=== PATIENT | male | born 1940 | race Caucasian/White ===

== ENCOUNTER → 2016-09-18 | Outpatient (CLI) | payer MEDICARE ==
[2016-09-21 14:46] LABS: ASPARTATE AMINO TRANSFERASE 29 U/L (15-37); BLOOD UREA NITROGEN 22 mg/dL (7-18)
== END | disposition home or self-care (01) ==
LOC: CFH 10:10
PROVIDERS: ATTEND Internal Medicine Cardiovascular Disease
DX: E78.2 Mixed hyperlipidemia (principal); I10 Essential (primary) hypertension
CPT/HCPCS: 36415; 80053; 80061

== ENCOUNTER → 2017-03-05 | Outpatient (CLI) | payer MEDICARE ==
[2017-03-09 14:16] LABS: LYME DISEASE IGG/IGM TOTAL AB <0.91 ISR (0.00-0.90); LYME DISEASE IGM <0.80 index (0.00-0.79)
== END | disposition home or self-care (01) ==
LOC: LAB 18:01
PROVIDERS: ATTEND Emergency Medicine
DX: M79.1 Myalgia (principal)
CPT/HCPCS: 36415; 85651; 86140; 86618

== ENCOUNTER 2017-04-02 13:33 | Inpatient (IN) | payer MEDICARE ==
[~2017-04-02] VITALS: Ht 180.3 cm; Wt 116.1 kg
[2017-04-02] MEDS ORDERED: SODIUM CHLORIDE FLUSH 10ML SYR IVF ONE (14:00)
[2017-04-02] MEDS ORDERED: PLEASE ENTER ALLERGIES MC SCH ×2 (14:00)
[2017-04-02 14:18] LABS: BLOOD UREA NITROGEN 19 mg/dL (7-18)
[2017-04-02 14:21] LABS: HEMATOCRIT 44.2 % (39.2-51.8); HEMOGLOBIN 14.8 g/dL (13.7-18.0); WHITE BLOOD COUNT 10.3 x10^3/uL (3.4-10)
[2017-04-02 14:23] LABS: ASPARTATE AMINO TRANSFERASE 24 U/L (15-37)
[2017-04-02] MEDS ORDERED: CHOL2000 PO (14:26)
[2017-04-02] MEDS ORDERED: ATOR80TA PO (14:26)
[2017-04-02] MEDS ORDERED: TAMS-11 PO (14:26)
[2017-04-02] MEDS ORDERED: ASPI-496 PO (14:26)
[2017-04-02] MEDS ORDERED: MULT-500 PO (14:26)
[2017-04-02] MEDS ORDERED: METO25TA2 PO (14:26)
[2017-04-02 14:30] LABS: IS PT STATUS REG ER OR PRE ER? YES
[2017-04-02] MEDS ORDERED: TAMSULOSIN 0.4 MG CAP.ER.24H ONE (14:30)
[2017-04-02] MEDS ORDERED: TAMSULOSIN 0.4 MG CAP.ER.24H PO ONE (15:00)
[2017-04-02] MEDS ORDERED: OMNIPAQUE 350 MG/ML, 100ML BOTTLE ONE (15:20)
[2017-04-02] MEDS ORDERED: HEPARIN 5,000 UNITS/ML, 1ML IV ONE (16:00)
[2017-04-02] MEDS ORDERED: HEPARIN 25,000 UNITS/500ML PMX 500 ML ONE (16:15)
[2017-04-02] MEDS ORDERED: HEPARIN 5,000 UNITS/ML, 1ML ONE (16:15)
[2017-04-02] MEDS: HEPARIN 25,000 UNITS/500ML PMX 500 ML IV PRN (16:21)
[2017-04-02] MEDS ORDERED: ONDANSETRON 2MG/ML, 2ML IVPush PRN (17:00)
[2017-04-02] MEDS ORDERED: POLYETHYLENE GLYCOL 17 GM PACKET PO PRN (17:00)
[2017-04-02] MEDS ORDERED: ENALAPRILAT 1.25 MG/ML, 2ML IVPush PRN (17:00)
[2017-04-02] MEDS ORDERED: HYDROcodone/APAP 5/325 TABLET PO PRN (17:00)
[2017-04-02] MEDS ORDERED: morphine SULFATE 10 MG/ML, 1ML IVPush PRN (17:00)
[2017-04-02] MEDS ORDERED: BISACODYL 10 MG SUPP PR PRN (17:00)
[2017-04-02] MEDS ORDERED: DOCUSATE 100 MG CAPSULE PO PRN (17:00)
[2017-04-02 18:05] VITALS: BP 128/77
[2017-04-02 20:11] VITALS: BP 125/75
[2017-04-02] MEDS: ATORVASTATIN 80 MG TABLET PO SCH (20:50)
[2017-04-02] MEDS: SODIUM CHLORIDE FLUSH 10ML SYR IVF SCH (20:50)
[2017-04-02] MEDS: HEPARIN 5,000 UNITS/ML, 1ML IV PRN (23:03)
[2017-04-02] MEDS: ZOLPIDEM 10MG TABLET PO PRN (23:23)
[2017-04-03 05:00] VITALS: BP 121/75
[2017-04-03 05:24] LABS: HEMOGLOBIN 13.5 g/dL (13.7-18.0); WHITE BLOOD COUNT 9.2 x10^3/uL (3.4-10)
[2017-04-03 05:31] LABS: BLOOD UREA NITROGEN 25 mg/dL (7-18)
[2017-04-03] MEDS: HEPARIN 5,000 UNITS/ML, 1ML IV PRN (06:01)
[2017-04-03] MEDS: ASPIRIN 81 MG TABLET EC PO SCH (09:14)
[2017-04-03] MEDS: TAMSULOSIN 0.4 MG CAP.ER.24H PO SCH (09:14)
[2017-04-03] MEDS: CHOLECALCIFEROL 1,000 UNIT TABLET PO SCH (09:14)
[2017-04-03] MEDS: MULTIVITAMINS/MINERALS TABLET PO SCH (09:14)
[2017-04-03] MEDS: METOPROLOL SUCCINATE 25 MG TAB.ER.24H PO SCH (09:14)
[2017-04-03] MEDS: SODIUM CHLORIDE FLUSH 10ML SYR IVF SCH ×2 (09:15→20:44)
[2017-04-03 10:28] LABS: CARCINOEMBRYONIC ANTIGEN 2.13 ng/mL (0.0-3.00); PROSTATE SPECIFIC ANTIGEN 0.48 ng/mL (0.00-4.00)
[2017-04-03 13:00] VITALS: BP 126/76
[2017-04-03] MEDS: HEPARIN 25,000 UNITS/500ML PMX 500 ML IV PRN (14:45)
[2017-04-03] MEDS: APIXABAN 5 MG TABLET PO SCH ×2 (15:30→16:04)
[2017-04-03] MEDS ORDERED: HYDR-3240 PO (16:02)
[2017-04-03] MEDS ORDERED: APIX5TAB PO (16:02)
[2017-04-03] MEDS ORDERED: HEPARIN 25,000 UNITS/500ML PMX 500 ML IV PRN (16:30)
[2017-04-03] MEDS ORDERED: HEPARIN 5,000 UNITS/ML, 1ML IV PRN (16:30)
[2017-04-03 19:37] VITALS: BP 130/75
[2017-04-03] MEDS: ZOLPIDEM 10MG TABLET PO PRN (20:44)
[2017-04-03] MEDS: ATORVASTATIN 80 MG TABLET PO SCH (20:44)
[2017-04-04 01:11] VITALS: BP 144/78
[2017-04-04] MEDS: ACETAMINOPHEN 325 MG TABLET PO PRN ×2 (01:25→06:59)
[2017-04-04 05:50] LABS: HEMATOCRIT 40.8 % (39.2-51.8); HEMOGLOBIN 13.6 g/dL (13.7-18.0)
[2017-04-04 08:00] VITALS: BP 127/80
[2017-04-04] MEDS: SODIUM CHLORIDE FLUSH 10ML SYR IVF SCH (08:13)
[2017-04-04] MEDS: TAMSULOSIN 0.4 MG CAP.ER.24H PO SCH (08:14)
[2017-04-04] MEDS: MULTIVITAMINS/MINERALS TABLET PO SCH (08:14)
[2017-04-04] MEDS: CHOLECALCIFEROL 1,000 UNIT TABLET PO SCH (08:15)
[2017-04-04] MEDS: ASPIRIN 81 MG TABLET EC PO SCH (08:15)
[2017-04-04] MEDS: METOPROLOL SUCCINATE 25 MG TAB.ER.24H PO SCH (08:15)
[2017-04-04] MEDS ORDERED: APIXABAN 5 MG TABLET PO SCH (09:30)
[2017-04-04 11:42] LABS: OCCBLD OBC PASS
[2017-04-04] MEDS ORDERED: FLU VACC QS2017-18 (36MOS+) UP/PF 0.5 ML IM-VACC ONE (13:30)
[2017-04-04] MEDS ORDERED: TRAM50TA2 PO (13:57)
[2017-04-04 14:00] VITALS: BP 115/69
== END 2017-04-04 17:38 | disposition home or self-care (01) | DRG 299 ==
LOC: ED 16:29 → EDIP 16:35 → 5SO 17:45
PROVIDERS: ADMIT Internal Medicine; ATTEND Internal Medicine
DX: I82.401 Acute embolism and thrombosis of unspecified deep veins of right lower extremity (principal); I26.99 Other pulmonary embolism without acute cor pulmonale; E44.1 Mild protein-calorie malnutrition; I27.20 Pulmonary hypertension, unspecified; I45.10 Unspecified right bundle-branch block; D72.829 Elevated white blood cell count, unspecified; E78.5 Hyperlipidemia, unspecified; I10 Essential (primary) hypertension; I25.10 Atherosclerotic heart disease of native coronary artery without angina pectoris; M10.9 Gout, unspecified; N40.0 Benign prostatic hyperplasia without lower urinary tract symptoms; Z68.35 Body mass index [BMI] 35.0-35.9, adult; Z80.7 Family history of other malignant neoplasms of lymphoid, hematopoietic and related tissues; Z82.49 Family history of ischemic heart disease and other diseases of the circulatory system; Z86.711 Personal history of pulmonary embolism; Z86.718 Personal history of other venous thrombosis and embolism; Z86.72 Personal history of thrombophlebitis; Z87.891 Personal history of nicotine dependence; Z95.1 Presence of aortocoronary bypass graft; Z23 Encounter for immunization
CPT/HCPCS: 36415; 71275; 80048; 80053; 81241; 82272; 82306; 82378; 82607; 83880; 84153; 84484; 85025; 85303; 85306; 85520; 85598; 85610; 85613; 85670; 85730; 85732; 86146; 86147; 90686; 93005; 93306; 96374; J1644; Q9967

== ENCOUNTER 2017-08-15 12:01 | Emergency (ER) | payer MEDICARE ==
[~2017-08-15] VITALS: Ht 180.3 cm; Wt 121.0 kg
[~2017-08-15 12:01] MED LIST: APIX5TAB PO; ASPI-496 PO; ATOR80TA PO; CHOL2000 PO; HYDR-3240 PO; METO25TA2 PO; MULT-500 PO; TAMS-11 PO; TRAM50TA2 PO
[2017-08-15 12:04] VITALS: BP 139/77
[2017-08-15] MEDS ORDERED: APIX5TAB PO (12:09)
[2017-08-15 12:44] LABS: BASOPHILS # (AUTO) 0.01 x10^3/uL (0-0.1); BASOPHILS % (AUTO) 0 % (0-1); EOSINOPHILS % (AUTO) 1 % (1-7); LYMPHOCYTES # (AUTO) 2.86 x10^3/uL (1-3.4); LYMPHOCYTES % (AUTO) 31 % (22-44); MD NO; MEAN CORPUSCULAR HEMOGLOBIN 31.2 pg (27.5-34.5); MEAN CORPUSCULAR HGB CONC 33.5 g/dL (33.2-36.2); MEAN CORPUSCULAR VOLUME 93.1 fL (81-97); MEAN PLATELET VOLUME 8.6 fL (7.4-10.4); MONOCYTES # (AUTO) 0.54 x10^3/uL (0.2-0.8); MONOCYTES % (AUTO) 6 % (2-9); NEUTROPHILS # (AUTO) 5.71 x10^3/uL (1.8-6.8); NEUTROPHILS % (AUTO) 62 % (42-75); PLATELET COUNT 204 x10^3/uL (130-400); RED CELL DISTRIBUTION WIDTH 15.5 % (9.4-14.8)
[2017-08-15 12:55] LABS: ALANINE AMINOTRANSFERASE 29 U/L (12-78); ALBUMIN 3.1 g/dL (3.4-5.0); ANION GAP 6 mmol/L (5-15); CALCIUM 8.5 mg/dL (8.5-10.1); CHLORIDE 105 mmol/L (98-107); CREATININE 1.06 mg/dL (0.7-1.3)
[2017-08-15 12:58] LABS: ALKALINE PHOSPHATASE 50 U/L (45-117); BILIRUBIN,TOTAL 0.8 mg/dL (0.2-1.0); TOTAL PROTEIN 6.9 g/dL (6.4-8.2)
[2017-08-15] MEDS ORDERED: SODIUM CHLORIDE FLUSH 10ML SYR IVF ONE (13:30)
== END 2017-08-15 14:57 | disposition home or self-care (01) ==
LOC: ED 14:45
DX: M48.061 Spinal stenosis, lumbar region without neurogenic claudication (principal); M25.561 Pain in right knee
CPT/HCPCS: 36415; 72148; 80053; 84550; 85025; 99285

== ENCOUNTER → 2017-09-07 | Outpatient (CLI) | payer MEDICARE | LOC: CVU 12:15 | PROVIDERS: ATTEND Physician Assistant Medical | DX: I08.0 Rheumatic disorders of both mitral and aortic valves (principal); I26.99 Other pulmonary embolism without acute cor pulmonale; E78.5 Hyperlipidemia, unspecified; Z95.1 Presence of aortocoronary bypass graft | CPT/HCPCS: 93306 ==